=== PATIENT | male | born 1965 | race Caucasian/White ===

== ENCOUNTER → 2018-04-23 14:49 | Outpatient (CLI) | payer BC, SELFPAY ==
--- NOTE | 2018-04-23 14:55 | ECHOD_ITS ---
Reason For Study: ARRHYTHMIA Procedure This was a 2D Doppler, Color Flow transthoracic echocardiogram. Exam performed in department. Left Ventricle Normal LV size. Left ventricular systolic function is normal. The estimated ejection fraction is 55 %. No evidence for diastolic dysfunction. No regional wall motion abnormalities noted. Right Ventricle Normal RV size. Normal systolic function. Atria Normal left atrium. Normal right atrium. Mitral Valve Normal mitral valve. Tricuspid Valve Normal tricuspid valve. Unable to estimate RV systolic pressure due to inadequate jet, pulmonary artery pressure probably normal. Aortic Valve Normal aortic valve. Trisinus/trileaflet aortic valve. Pulmonic Valve Normal pulmonic valve. Great Vessels Normal aortic root. The pulmonary artery is normal size. Normal inferior vena cava. Pericardium/Pleural No pericardial effusion. MMode/2D Measurements & Calculations LVIDd: 5.4 cm IVSd: 0.90 cm Ao root diam: 3.1 cm LVIDs: 3.7 cm LVPWd: 1.1 cm RVDd: 3.6 cm FS: 31.0 % LAV(MOD-bp): 56.1 ml LVAd ap4: 36.9 cm2 SV(MOD-sp4): 82.2 ml LAV(MOD-bp) Indexed: 33.7 ml/m2 EDV(MOD-sp4): 130.8 ml LAV(MOD-sp2): 65.7 ml EDV(sp4-el): 136.6 ml LAV(MOD-sp4): 41.6 ml LVAs ap4: 19.9 cm2 ESV(MOD-sp4): 48.6 ml ESV(sp4-el): 49.0 ml EF(MOD-sp4): 62.9 % EF(sp4-el): 64.1 % SV(sp4-el): 87.6 ml LA A4 area: 16.6 cm2 RA A4 area: 14.0 cm2 Doppler Measurements & Calculations Lat Peak E' Dereck: 11.1 cm/sec Med Peak E' Dereck: 12.6 cm/sec PA V2 max: 103.5 cm/sec Interpretation Summary Normal LV size. Left ventricular systolic function is normal. The estimated ejection fraction is 55 %. No evidence for diastolic dysfunction. Structurally normal valves. Ordering Physician: CLINT MORROW Referring Physician: RICH FUNK Performed By: Gerardo REDDY, Fern VARELA and Student
== END ==
PROVIDERS: Family Provider Nurse Practitioner; PCP Nurse Practitioner; Visit Provider Internal Medicine Cardiovascular Disease
DX: R00.1 Bradycardia, unspecified (principal)
CPT/HCPCS: 93306

== ENCOUNTER → 2020-06-15 10:21 | Outpatient (CLI) | payer BC, SELFPAY ==
[2019-06-24 08:49] VITALS: BMI 25.2
--- NOTE | 2020-06-15 13:06 | STRESSREP ---
Stress Test Report Exercise stress test. 54-year-old man with a history of chest pain Stress protocol: Resting EKG demonstrates sinus bradycardia. The patient exercised according to the regular Robert protocol for a total duration of 10 minutes. Patient completed 1 minute into stage IV of the Robert protocol the maximum heart rate attained was 153 bpm which was 92% of maximum predicted heart rate the maximum workload was 11.7 metabolic equivalents. At rest there were no ST or T wave changes noted to suggest ischemia at peak exercise upsloping ST changes only were noted we did not meet the criteria for ischemia. No clinical angina was noted. Conclusion: Exercise stress test with no EKG criteria for ischemia at a high workload. Excellent functional capacity.
== END ==
PROVIDERS: PCP Nurse Practitioner; Referring Provider Internal Medicine Cardiovascular Disease; Visit Provider Internal Medicine Cardiovascular Disease
DX: R00.1 Bradycardia, unspecified (principal)
CPT/HCPCS: 93017

== ENCOUNTER → 2023-03-17 | Outpatient (CLI) | payer BC, SELFPAY ==
[2023-03-17 21:48] LABS: Absolute Lymphocyte Count 3.77 X10^3/uL (0.83-4.51); Basophil# 0.03 X10^3/uL; Basophil% 0.3 % (0-1); Eosinophil# 0.28 X10^3/uL; Eosinophils% 2.9 % (0-5); Hemoglobin 13.6 g/dL (13.0-16.5); Lymphocyte # 3.77 X10^3/ul (0.83-4.51); Lymphocyte % 38.9 % (19-41); Mean Corp Hgb Conc 33.2 g/dL (32-36); Mean Corpuscular Hgb 31.6 pg (27.0-32.0); Mean Corpuscular Volume 95.1 fL (80-94); Mean Platelet Vol. 9.4 fl (6.2-12.0); Monocyte# 0.52 X10^3/uL; Monocyte% 5.4 % (0-10); NRBC Flagged by Analyzer 0 % (0-5); Neutrophil # 5.02 X10^3/uL (2.7-7.7); Neutrophil % 51.7 % (47-70); Platelet Count 381 K/mm3 (150-450); RBC Distribution Width CV 14.2 % (11.6-14.6); RBC Distribution Width SD 49.6 fl (35.1-43.9); Red Blood Count 4.31 M/mm3 (4.6-6.2); White Blood Count 9.7 K/mm3 (4.4-11.0)
[2023-03-17 22:18] LABS: ALB/GLOB Ratio 0.9 RATIO (0.9-2.4); AST(SGOT) 16 U/L (15-37); Alanine Aminotransfer ALT/SGPT 25 U/L (16-61); Albumin, Serum 3.6 g/dL (3.2-5.0); Alkaline Phosphatase 57 U/L (45-117); Anion Gap 5 (5-15); BUN 13 mg/dL (7-18); BUN/Creat Ratio 16.2 RATIO (10-20); Chloride 104 mmol/L (98-107); Cholesterol 186 mg/dL (200); EST Glomerular Filtration Rate 105 mL/min (>60); Est Glom Filt Rate - Afr Amer 127 mL/min (>60); Globulin 3.8 g/dL (2.2-4.2); Glucose 88 mg/dL (74-106); High Density Lipoprotein 95 mg/dL; Potassium 4.2 mmol/L (3.5-5.1); Protein, Total 7.4 g/dL (6.4-8.2); Sodium Level 136 mmol/L (136-145); Triglycerides 78 mg/dL; Very Low Density Lipoprotein 16 mg/dL (5-40)
== END | disposition home or self-care (01) ==
PROVIDERS: PCP Nurse Practitioner; Visit Provider Nurse Practitioner
DX: Z00.00 Encounter for general adult medical examination without abnormal findings (principal)
CPT/HCPCS: 80053; 80061; 84153; 85025; G0103